=== PATIENT | male | born 1995 | race Two or more races ===

== ENCOUNTER 2024-01-21 11:28 | Inpatient (IN) | payer MEDICAID, OTHER ==
[~2024-01-21] VITALS: Ht 188 cm; Wt 160.8 kg
--- NOTE | 2024-01-21 11:35 | ED.PDOC ---
GI ASSESSMENT HPI Comments H HPI: Poor Historian. 28-year-old male presents to emergency department for evaluation of right lower quadrant pain with associated nausea vomiting diarrhea nonbilious nonbloody. Onset of symptoms was this morning. Pain is constant nonradiating. No alleviating or precipitating factors. Never had this kind of pain before. Vitals T: 98.0 F RR: 24 HR: 80 BP: 148/97 O2: 99% on RA PMHx: denies PSHx: L arm surgery Social hx: endorses tobacco use, denies ETOH use, denies drug use Meds: denies Allergies: amoxicillin REVIEW OF SYSTEMS: CONSTITUTIONAL: Denies acute: fever, diaphoresis, chills, HEAD: Denies acute: headache, photophobia Eyes: Denies acute: Double vision, vision loss, eye pain, eye discharge. EARS: Denies acute: tinnitus, hearing loss, ear discharge, ear pain, THROAT: Denies acute: sore throat, swelling, difficulty swallowing , pain with swallowing, change in voice. NECK: Denies acute: neck pain, neck swelling, stiff neck. HEART: Denies acute : chest pain, palpitations, LUNGS: Denies acute: SOB, wheezing, cough, hemoptysis ABDOMEN: Denies acute: melena , hematemesis, hematochezia SKIN: Denies acute: rash, redness, lesions, itchiness. EXTREMITIES: Denies acute: calf pain, numbness, tingling, weakness, denies pain in extremity. Denies acute: Low back pain. Neuro: Denies acute: focal neurological deficit, motor or sensory focal neurological deficit, tremors, seizure like activity, confusion, dizziness, change in mental status, loss of bowel or bladder function, cauda equina like symptoms. : Denies acute: dysuria, hematuria, flank pain, increase in urinary frequency. PSYCH: Denies acute: hallucination, suicidal ideation, homicidal ideation. PHYSICAL EXAM: General: Moderate acute distress, awake and alert. Head: normocephalic, atraumatic. Neck: supple, trachea is midline, no swelling. Throat: Normal phonation. Eyes:, no erythema, no purulent discharge, no proptosis, no icterus. Heart: regular rate, regular rhythm, no significant murmur appreciated. Lungs: no apparent respiratory distress, Able to speak in full sentences. No wheezing, no rhonchi, no crackles. No stridors Clear to auscultation bilaterally. Abdomen: Right lower quadrant tender to palpation, non distended, soft, no guarding, no rebound, + bowel sounds. Obese Neuro: Awake, Alert, oriented to name, self, situation, follows commands GCS=15. Speech is normal. Skin: no petechia, no purpura, no cyanosis, non-pale, not jaundice. Lower extremities: --no - Pitting edema no deformity, no focal swelling, no calf TTP. Makes eye contact. moves all four extremities. Face: no apparent facial droop. Ambulating in the ED independently. Chief Complaint: abdominal pain Time Seen by MD: 12:14 Reviewed Notes: Nurses Notes, Allergies Allergies: Coded Allergies: Amoxicillin (Verified Allergy, Unknown, 01/21/24) Information Source: Patient Mode of Arrival: Ambulatory Brought in by: self Past Medical History PAST MEDICAL HISTORY: Denies Surgical History (Other): L arm Family History Family History: Reviewed,noncontributory to illness Social History Smoker: Cigarettes Alcohol: Denies ETOH Use Drugs: Denies Drug Use Lives In: Home Was a procedure done? Was a procedure done?: No GI differential Dx Differential Diagnosis: Other (DDX include but not limited to diverticulitis, colitis, gastroenteritis, acute abdomen, SBO, enteritis, constipation, volvulus, appendicitis, Gallbladder disease, choledocolithiasis, ascending cholangitis, pancreatitis, intraAbdominal mass/neoplasm, hepatitis, UTI, pylonephritis, kidney stone, aneurysm, dissection, Inflammatory bowel disease, gastroparesis, ischemic bowel.) X-Ray, Labs, Meds, VS Vital Signs Date Time Temp Pulse Resp B/P (MAP) Pulse Ox O2 Delivery O2 Flow Rate FiO2 01/21/24 14:30 68 17 151/99 (116) 98 01/21/24 12:41 63 15 154/94 (114) 98 01/21/24 12:33 155/89 01/21/24 12:05 73 16 01/21/24 12:05 73 16 141/98 (112) 100 01/21/24 11:30 98.0 80 24 148/97 (114) 99 Lab Test 01/21/24 13:52 01/21/24 11:44 Range/Units Lactic Acid Level 1.6 2.9 *H 0.4-2.0 mmol/L White Blood Count 7.3 4.4-10.8 10^3/uL Red Blood Count 5.28 4.5-5.90 10^6/uL Hemoglobin 15.8 13.5-17.5 g/dL Hematocrit 45.4 41.0-53.0 % Mean Corpuscular Volume 85.9 80.0-100.0 fL Mean Corpuscular Hemoglobin 29.9 28.0-32.0 pg Mean Corpuscular Hemoglobin Concent 34.8 32.0-36.0 g/dL Red Cell Distribution Width 13.4 11.8-14.3 % Platelet Count 287 140-450 10^3/uL Mean Platelet Volume 8.1 6.9-10.8 fL Neutrophils (%) (Auto) 54.1 37.0-80.0 % Lymphocytes (%) (Auto) 35.0 10.0-50.0 % Monocytes (%) (Auto) 7.1 0.0-12.0 % Eosinophils (%) (Auto) 2.8 0.0-7.0 % Basophils (%) (Auto) 1.0 0.0-2.0 % Neutrophils # (Auto) 4.0 1.6-8.6 10 ^3/uL Lymphocytes # (Auto) 2.6 0.4-5.4 10 ^3/uL Monocytes # (Auto) 0.5 0-1.3 10 ^3/uL Eosinophils # (Auto) 0.2 0-0.8 10 ^3/uL Basophils # (Auto) 0.1 0-0.2 10 ^3/uL Nucleated Red Blood Cells 0.1 % Sodium Level 141 136-145 mmol/L Potassium Level 3.8 3.5-5.1 mmol/L Chloride Level 105 98-107 mmol/L Carbon Dioxide Level 29 20-31 mmol/L Anion Gap 7 5-15 Blood Urea Nitrogen 11 9-23 mg/dL Creatinine 1.14 0.700-1.30 mg/dL Glomerular Filtration Rate Calc 89 >90 mL/min BUN/Creatinine Ratio 9.6 L 10.0-20.0 Serum Glucose 108 H 74-106 mg/dL Calcium Level 9.6 8.7-10.4 mg/dL Total Bilirubin 0.5 0.2-1.0 mg/dL Aspartate Amino Transferase (AST) 30 13-40 U/L Alanine Aminotransferase (ALT) 75 H 7-40 U/L Alkaline Phosphatase 110 46-116 U/L Total Protein 7.4 5.7-8.2 g/dL Albumin 4.9 H 3.2-4.8 g/dL Lipase 29 12-53 U/L Current Medications Medications (Trade) Dose Ordered Sig/George Route Start Time Stop Time Status Last Admin Sodium Chloride 1,000 ml @ 1,000 mls/hr Q1H ONCE IV 01/21/24 11:45 01/21/24 12:44 DC 01/21/24 12:19 Ondansetron HCl (Zofran) 8 mg ONCE ONCE IV 01/21/24 11:45 01/21/24 11:46 DC 01/21/24 12:19 Fentanyl Citrate 100 mcg ONCE ONCE IV 01/21/24 12:30 01/21/24 12:31 DC 01/21/24 12:33 Tamsulosin HCl (Flomax) 0.4 mg ONCE ONCE PO 01/21/24 12:30 01/21/24 12:31 DC 01/21/24 12:37 [place] [id number] Ph: [phone] DIAGNOSTIC IMAGING Diagnostic Imaging Report : [id number] Signed PATIENT: JESI BROOKS ACCT: [id number] UNIT: [id number] : 1995 LOC: ER ROOM / BED: / AGE / SEX: 28 / M ADM STATUS: REG ER SERVICE 1138 ORDERING PHYSICIAN: JOSÉ RASMUSSEN DO PROCEDURE(s): ABPL - CT AB PEL WO CON-NO ORAL OR IV REASON: RLQ PAIN N/V/D ORDER NUMBER(s): [id number], ACCESSION NUMBER(s): [id number] Exam: CT CT AB PEL WO CON-NO ORAL OR IV History: RLQ PAIN N/V/D Comparison Study: None Technique: Multidetector spiral CT of the abdomen and pelvis was performed from lung bases to pubic symphysis. Imaging was performed without IV contrast. Axial, coronal and sagittal multiplanar reformats were obtained from the axial data set by the technologist. Radiation dose : Abdomen/Pelvis: CTDIvol 25 mGy, DLP 1655 mGy*cm. Findings: Evaluation of solid organs is limited due to lack of intravenous contrast use. Lung Bases: No acute or significant lung base finding. Normal heart size. No pleural or pericardial effusion. Liver: The liver is normal in size. No focal lesions. Gallbladder and biliary Tree: Unremarkable Spleen: Unremarkable Pancreas: The pancreas is grossly normal in appearance. Adrenal Glands: Unremarkable Kidneys: There is mild right hydronephrosis. There is a punctate distal right ureteral calculus measuring less than 2 mm. No left hydronephrosis. Bladder: Grossly unremarkable for degree of distention. Bowel: The stomach is grossly normal in appearance. Small bowel and colon are normal in caliber and distribution. Normal appendix is visualized in the right lower quadrant without findings of appendicitis. Ascites: Absent Lymphadenopathy: No mesenteric, retroperitoneal or periportal lymphadenopathy. Abdominal wall and Mesentery: Unremarkable. Vasculature: The visualized abdominal aorta is normal in size and caliber. Evaluation of abdominal and pelvic vessels is limited due to lack of intravenous contrast. Pelvic Organs: Unremarkable Musculoskeletal: No aggressive focal bony lesions, acute fractures or dislocation. IMPRESSION: 1. Punctate mildly obstructing distal right ureteral calculus measuring less than 2 mm associated with mild right hydronephrosis. Urology evaluation is recommended. Radiation optimization: All CT scans at this facility use at least one of these dose optimization techniques: Automated exposure control mA and/or kV adjustment per patient size (includes targeted exams where dose is matched to clinical indication) or iterative reconstruction. HS:Y ATED BY: ASHWIN COOK MD DICTATED DATE/TIME: 01/21/248 SIGNED BY: ASHWIN COOK MD SIGNED DATE/TIME: 01/21/24 1218 CC: Time of 1ST Reevaluation: 19:08 Reevaluation 1ST: Improved Patient Education/Counseling: Diagnosis, Treatment Family Education/Counseling: No Family Present Comments Patient presented with the above HPI.-abdominal pain-----workup was initiated. patient was found with the above mentioned diagnosis. Patient was given: Fentanyl, fluids, Zofran, Flomax, Rocephin Patient ED course and VS have been stabilized. Patient has been reassessed in the ED and remained in a stable condition. Pertinent incidental findings were discussed with the patient and/or family. Patient/family voices understanding and is agreeable with plan. Patient has been observed in the ED adequate length of time to insure improvement/stability. patient was admitted to the medicine team for further evaluation and treatment of their presentation. All the reports of any imaging studies that were ordered by myself were reviewed by myself. Departure 1 Departure Time of Disposition: 14:25 Impression: Primary Impression: Hydronephrosis with renal and ureteral calculous obstruction Disposition: ADMITTED INPATIENT Admit to: Tele Condition: Guarded Discharged With: Self Critical Care Note Critical Care Time?: No I personally scribed for JOSÉ RASMUSSEN DO ([email or web address]) on 01/21/24 at 11:35. Electronically submitted by Nelida Flores ([facility]). I personally scribed for JOSÉ RASMUSSEN DO ([email or web address]) on 01/21/24 at 12:16. Electronically submitted by Nelida Flores ([email or web address]). I personally scribed for JOSÉ RASMUSSEN DO ([email or web address]) on 01/21/24 at 12:40. Electronically submitted by Nelida Flores ([employer]). JOSÉ RASMUSSEN DO Jan 21, 2024 11:35
[2024-01-21 12:10] LABS: Basophils # (auto) 0.1 10 ^3/uL (0-0.2); Eosinophils # (auto) 0.2 10 ^3/uL (0-0.8); Eosinophils % (auto) 2.8 % (0.0-7.0); Hematocrit 45.4 % (41.0-53.0); Hemoglobin 15.8 g/dL (13.5-17.5); Lymphocytes # (auto) 2.6 10 ^3/uL (0.4-5.4); Mean Corpuscular Hemoglobin 29.9 pg (28.0-32.0); Mean Corpuscular Hgb Conc. 34.8 g/dL (32.0-36.0); Mean Corpuscular Volume 85.9 fL (80.0-100.0); Monocytes # (auto) 0.5 10 ^3/uL (0-1.3); Monocytes % (auto) 7.1 % (0.0-12.0); Neutrophils % (auto) 54.1 % (37.0-80.0); Nucleated Red Blood Cells % 0.1 %; Platelet Count (auto) 287 10^3/uL (140-450); Red Blood Cells 5.28 10^6/uL (4.5-5.90); Red Cell Distribution Width 13.4 % (11.8-14.3); White Blood Cell 7.3 10^3/uL (4.4-10.8)
[2024-01-21] MEDS: SODIUM CHLORIDE 0.9% 1,000 ML IV ONE (12:16)
[2024-01-21] MEDS: ONDANSETRON HCL 4 MG/2 ML VIAL IV ONE (12:19)
--- NOTE | 2024-01-21 12:21 | DVH ---
Exam: CT CT AB PEL WO CON-NO ORAL OR IV History: RLQ PAIN N/V/D Comparison Study: None Technique: Multidetector spiral CT of the abdomen and pelvis was performed from lung bases to pubic symphysis. Imaging was performed without IV contrast. Axial, coronal and sagittal multiplanar reform ats were obtained from the axial data set by the technologist. Radiation dose : Abdomen/Pelvis: CTDIvol 25 mGy, DLP 1655 mGy*cm. Findings: Evaluation of solid organs is limited due to lack of intravenous contrast use. Lung Bases: No acute or significant lung base finding. Normal heart size. No pleural or pericardial effusion. Liver: The liver is normal in size. No focal lesions. Gallbladder and biliary Tree: Unremarkable Spleen: Unremarkable Pancreas: The pancreas is grossly normal in appearance. Adrenal Glands: Unremarkable Kidneys: There is mild right hydronephrosis. There is a punctate distal right ureteral calculus measu ring less than 2 mm. No left hydronephrosis. Bladder: Grossly unremarkable for degree of distention. Bowel: The stomach is grossly normal in appearance. Small bowel and colon are normal in caliber and d istribution. Normal appendix is visualized in the right lower quadrant without findings of appendici tis. Ascites: Absent Lymphadenopathy: No mesenteric, retroperitoneal or periportal lymphadenopathy. Abdominal wall and Mesentery: Unremarkable. Vasculature: The visualized abdominal aorta is normal in size and caliber. Evaluation of abdominal a nd pelvic vessels is limited due to lack of intravenous contrast. Pelvic Organs: Unremarkable Musculoskeletal: No aggressive focal bony lesions, acute fractures or dislocation. IMPRESSION: 1. Punctate mildly obstructing distal right ureteral calculus measuring less than 2 mm associated wit h mild right hydronephrosis. Urology evaluation is recommended. Radiation optimization: All CT scans at this facility use at least one of these dose optimization isabell hniques: Automated exposure control mA and/or kV adjustment per patient size (includes targeted exams where dose is matched to clinical indication) or iterative reconstruction. HS:Y
[2024-01-21] MEDS: fentaNYL CITRATE 100 MCG/2 ML VL IV ONE (12:33)
[2024-01-21] MEDS: TAMSULOSIN HYDROCHLORIDE 0.4 MG CAP PO ONE (12:37)
[2024-01-21 12:49] LABS: Lactic Acid w/Reflex 2.9 mmol/L (0.4-2.0)
[2024-01-21 13:16] LABS: Alanine Aminotransferase 75 U/L (7-40); Alkaline Phosphatase 110 U/L (46-116); Anion Gap 7 (5-15); Aspartate Aminotransferase 30 U/L (13-40); BUN/Creatinine Ratio 9.6 (10.0-20.0); Blood Urea Nitrogen 11 mg/dL (9-23); Calcium 9.6 mg/dL (8.7-10.4); Carbon Dioxide 29 mmol/L (20-31); Chloride 105 mmol/L (98-107); Glucose 108 mg/dL (74-106); Lipase 29 U/L (12-53); Potassium 3.8 mmol/L (3.5-5.1); Sodium 141 mmol/L (136-145)
[2024-01-21 13:17] LABS: Albumin 4.9 g/dL (3.2-4.8); Bilirubin, Total 0.5 mg/dL (0.2-1.0); Total Protein 7.4 g/dL (5.7-8.2)
[2024-01-21] MEDS ORDERED: TEMAZEPAM 15 MG CAP PO PRN (15:15)
[2024-01-21] MEDS ORDERED: LORazepam 0.5 MG TAB PO PRN (15:15)
[2024-01-21] MEDS: SODIUM CHLORIDE 0.9% 1,000 ML IV SCH (15:15)
[2024-01-21] MEDS ORDERED: MAALOX PLUS or MAALOX 30 ML PO PRN (15:15)
[2024-01-21] MEDS ORDERED: DOCUSATE SOD 100 MG CAP PO PRN (15:15)
--- NOTE | 2024-01-21 15:31 | DVHHP2 ---
History of Present Illness Reason for Visit: Abdominal pain History of Present Illness 28-year-old morbidly obese patient with no stated other medical history comes to the ED with complaints of abdominal pain patient on full evaluation was shown to have signs of acute hydronephrosis with signs of partial obstruction due to ston es at this point in time patient was recommended for admission and continued evaluation and treatment inpatient for acute hydronephrosis suspected urinary tract based infection Review of Systems Constitutional: Yes: Weakness; No: Fever, Chills, Sweats, Malaise, Other Eyes: No: Pain, Vision change, Conjunctivae inflammation, Eyelid inflammation, Other, Redness ENT: No: Ear pain, Ear discharge, Nose pain, Nose discharge, Nose congestion, Mouth pain, Mouth swelling, Throat pain, Throat swelling, Other Respiratory: No: Cough, Dry, Shortness of breath, SOB with excertion, Wheezing, Hemoptysis, Pleuritic Pain, Sputum, Wheezing, Other Cardiovascular: No: Chest Pain, Palpitations, Orthopnea, Paroxysmal Noc. Dyspnea, Edema, Lt Headedness, Other Gastrointestinal: No: Nausea, Vomiting, Abdominal Pain, Diarrhea, Constipation, Melena, Hematochezia, Other Genitourinary: Dysuria, Frequency; No Incontinence, No Hematuria; Retention; No Other Musculoskeletal: No: other, neck pain, shoulder pain, arm pain, back pain, hand pain, leg pain, foot pain Skin: No: Rash, Lesions, Jaundice, Bruising, Other Neurological: No: Weakness, Numbness, Incoordination, Change in speech, Confusion, Seizures, Other Allergies: Coded Allergies: Amoxicillin (Verified Allergy, Unknown, 01/21/24) Medications Current Medications Medications Dose Ordered Sig/George Route Start Time Stop Time Status Last Admin Dose Admin Finasteride 5 mg DAILY PO 01/21/24 15:15 UNV Tamsulosin HCl 0.8 mg DAILY PO 01/22/24 10:00 UNV Sodium Chloride 1,000 ml @ 100 mls/hr Q10H IV 01/21/24 15:15 UNV Lorazepam 0.5 mg Q6HP PRN PO 01/21/24 15:15 UNV Al Hydrox/Mg Hydrox/Simethicone 30 ml Q6HP PRN PO 01/21/24 15:15 UNV Docusate Sodium 100 mg BIDPRN PRN PO 01/21/24 15:15 UNV Acetaminophen 650 mg Q6HP PRN PO 01/21/24 15:15 UNV Temazepam 15 mg QHSP PRN PO 01/21/24 15:15 UNV Acetaminophen/ Hydrocodone Bitart 1 tab Q4HP PRN PO 01/21/24 15:15 UNV Ondansetron HCl 4 mg Q4HP PRN IV 01/21/24 15:15 UNV Morphine Sulfate 2 mg Q4HPRN PRN IV 01/21/24 15:15 UNV Ceftriaxone Sodium 50 ml @ 100 mls/hr DAILY IV 01/22/24 10:00 UNV Exam Vital Signs Vital Signs Date Time Temp Pulse Resp B/P (MAP) Pulse Ox O2 Delivery O2 Flow Rate FiO2 01/21/24 14:30 68 17 151/99 (116) 98 01/21/24 11:30 98.0 General Appearance: Alert, Oriented X3, Cooperative HEENT: Atraumatic, EOMI Respiratory: Clear to auscultation, Normal air movement Cardiovascular: Regular rate, Normal S1, Normal S2 Abdominal: Normal bowel sounds (Flank pain), Soft, No tenderness Extremities: No clubbing, No cyanosis, No edema Skin: No rashes, No breakdown, No significant lesion Neuro: Normal gait, Normal speech Psych/Mental Status: Mood NL Labs/Xrays Labs Test 01/21/24 13:52 01/21/24 11:44 Range/Units Lactic Acid Level 1.6 0.4-2.0 mmol/L White Blood Count 7.3 4.4-10.8 10^3/uL Red Blood Count 5.28 4.5-5.90 10^6/uL Hemoglobin 15.8 13.5-17.5 g/dL Hematocrit 45.4 41.0-53.0 % Mean Corpuscular Volume 85.9 80.0-100.0 fL Mean Corpuscular Hemoglobin 29.9 28.0-32.0 pg Mean Corpuscular Hemoglobin Concent 34.8 32.0-36.0 g/dL Red Cell Distribution Width 13.4 11.8-14.3 % Platelet Count 287 140-450 10^3/uL Mean Platelet Volume 8.1 6.9-10.8 fL Neutrophils (%) (Auto) 54.1 37.0-80.0 % Lymphocytes (%) (Auto) 35.0 10.0-50.0 % Monocytes (%) (Auto) 7.1 0.0-12.0 % Eosinophils (%) (Auto) 2.8 0.0-7.0 % Basophils (%) (Auto) 1.0 0.0-2.0 % Neutrophils # (Auto) 4.0 1.6-8.6 10 ^3/uL Lymphocytes # (Auto) 2.6 0.4-5.4 10 ^3/uL Monocytes # (Auto) 0.5 0-1.3 10 ^3/uL Eosinophils # (Auto) 0.2 0-0.8 10 ^3/uL Basophils # (Auto) 0.1 0-0.2 10 ^3/uL Nucleated Red Blood Cells 0.1 % Sodium Level 141 136-145 mmol/L Potassium Level 3.8 3.5-5.1 mmol/L Chloride Level 105 98-107 mmol/L Carbon Dioxide Level 29 20-31 mmol/L Anion Gap 7 5-15 Blood Urea Nitrogen 11 9-23 mg/dL Creatinine 1.14 0.700-1.30 mg/dL Glomerular Filtration Rate Calc 89 >90 mL/min BUN/Creatinine Ratio 9.6 L 10.0-20.0 Serum Glucose 108 H 74-106 mg/dL Calcium Level 9.6 8.7-10.4 mg/dL Total Bilirubin 0.5 0.2-1.0 mg/dL Aspartate Amino Transferase (AST) 30 13-40 U/L Alanine Aminotransferase (ALT) 75 H 7-40 U/L Alkaline Phosphatase 110 46-116 U/L Total Protein 7.4 5.7-8.2 g/dL Albumin 4.9 H 3.2-4.8 g/dL Lipase 29 12-53 U/L Assessment/Plan Assessment/Plan Admit to [facility] Hydronephrosis with suspected UTI CT scan shows 2 mm stone with partial obstruction recommended urology evaluation Urology consulted IV hydration IV antibiotics Tamsulosin daily Finasteride daily Recommendation for Ashford placement for decompression P.r.n. medication for the management of acute pain Patient is morbidly obese may need assistance with managing ambulation No other stated past medical history at this point in time we will continue to monitor baseline some toileting Hypertension and blood pressure management Changes in acute glucose due to patient's size Plan discussed with: Patient My Orders Orders - DANILO MART MD Procedure Category Date Status Time * Gu Consult CONS 01/21/24 Transmitted 15:05 Insert Ashford Catheter [facility]AN[facility] 01/21/24 In Process 15:05 Finasteride Tablet PHA 01/21/24 Logged (Proscar Tablet) 15:15 Tamsulosin PHA 01/22/24 Logged Hydrochloride (Flomax) 10:00 Admit ADMIT 01/21/24 Transmitted 15:05 Code Status CODE 01/21/24 Transmitted 15:05 Vital Signs BANNER 01/21/24 In Process 15:05 Review Orders With [facility]ANNER 01/21/24 In Process Adm. 15:05 Regular Diet DIET 01/21/24 Transmitted Dinner Sodium Chloride 0.9% PHA 01/21/24 Logged 15:15 Lorazepam Tablet PHA 01/21/24 Logged (Ativan Tablet) 15:15 Alum & Mag PHA 01/21/24 Logged Hydrox-Simethicone 15:15 Docusate Sodium PHA 01/21/24 Logged Capsule (Colace 15:15 Acetaminophen Tablet PHA 01/21/24 Logged (Tylenol Tablet) 15:15 Temazepam (Restoril) PHA 01/21/24 Logged 15:15 Notify Of Changes BANNER 01/21/24 In Process From Base 15:05 Advance Directive [facility]ANNER 01/21/24 In Process 15:05 Basic Metabolic Panel LAB 01/22/24 Verified 04:00 Complete Blood Count LAB 01/22/24 Verified 04:00 Patient Condition ORDERS 01/21/24 Transmitted 15:05 Allergies [facility]ANNER 01/21/24 In Process 15:05 Hydrocodone-Acet PHA 01/21/24 Logged 5/325mg Tab ([place] 15:15 Ondansetron Hcl PHA 01/21/24 Logged (Zofran) 15:15 Morphine Sulfate PHA 01/21/24 Logged Injection 15:15 Notify Of Changes BANNER 01/21/24 In Process From Base 15:05 Family Preservation Caseworker For BANNER 01/21/24 In Process 24 Hours 15:05 Oxygen By Nasal RT 01/21/24 Transmitted Cannula 15:05 Ceftriaxone 1gm/50ml PHA 01/22/24 Logged D5w (Rocephin) 10:00 Problem List: (1) Morbid obesity with BMI of 45.0-49.9, adult (2) Hydronephrosis with renal and ureteral calculous obstruction Date of Service: Jan 21, 2024 Billing Provider: DANILO MART MD Common Visit Codes: [id number] INP/OBS CARE (HIGH) DANILO MART MD Jan 21, 2024 15:31
[2024-01-21 17:38] VITALS: BP 154/102; PULSE 66; RESP 20; TEMP 98.3; O2SAT 98
[2024-01-21] MEDS: MORPHINE SULFATE INJ 2 MG/ml SYRG IV PRN (17:56)
[2024-01-21] MEDS: HYDROcodone-ACET 5/325MG TAB PO PRN (19:08)
[2024-01-21 19:36] LABS: Urine Amorphous Crystal MOD /hpf (None Seen); Urine Bacteria FEW /hpf (None Seen); Urine Blood 1+ /uL (Negative); Urine Clarity Ex.Turbid (Clear); Urine Color Brown (Yellow); Urine Protein, UAD Negative (Negative); Urine Specific Gravity 1.024 (1.001-1.035); Urine Urobilinogen Normal (Negative); Urine WBC 8 /hpf (0 - 3)
[2024-01-22] VITALS (8 sets, daily range): BP systolic 105–142; BP diastolic 59–88; PULSE 78–98; RESP 18–20; TEMP 97.9–99.3; O2SAT 93–98
[2024-01-22 04:10] LABS: Basophils # (auto) 0 10 ^3/uL (0-0.2); Basophils % (auto) 0.4 % (0.0-2.0); Eosinophils # (auto) 0 10 ^3/uL (0-0.8); Eosinophils % (auto) 0.2 % (0.0-7.0); Hematocrit 41.6 % (41.0-53.0); Hemoglobin 14.6 g/dL (13.5-17.5); Lymphocytes % (auto) 18.3 % (10.0-50.0); Mean Corpuscular Hemoglobin 30.1 pg (28.0-32.0); Mean Corpuscular Hgb Conc. 35.1 g/dL (32.0-36.0); Mean Corpuscular Volume 85.8 fL (80.0-100.0); Monocytes # (auto) 0.8 10 ^3/uL (0-1.3); Monocytes % (auto) 7.6 % (0.0-12.0); Neutrophils # (auto) 8.2 10 ^3/uL (1.6-8.6); Neutrophils % (auto) 73.5 % (37.0-80.0); Nucleated Red Blood Cells % 0.2 %; Platelet Count (auto) 229 10^3/uL (140-450); Red Blood Cells 4.85 10^6/uL (4.5-5.90); Red Cell Distribution Width 13.4 % (11.8-14.3); White Blood Cell 11.1 10^3/uL (4.4-10.8)
[2024-01-22 04:12] LABS: Chloride 104 mmol/L (98-107); Sodium 139 mmol/L (136-145)
[2024-01-22 04:13] LABS: Anion Gap 9 (5-15); Carbon Dioxide 26 mmol/L (20-31)
[2024-01-22 04:14] LABS: Calcium 9.6 mg/dL (8.7-10.4)
[2024-01-22 04:18] LABS: BUN/Creatinine Ratio 7.5 (10.0-20.0); Blood Urea Nitrogen 12 mg/dL (9-23); Glucose 94 mg/dL (74-106)
[2024-01-22] MEDS: FINASTERIDE 5 MG TAB PO SCH (07:45)
[2024-01-22] MEDS: cefTRIAXone 1GM/50ML D5W 50 ML IV ONE (07:50)
[2024-01-22] MEDS: ONDANSETRON HCL 4 MG/2 ML VIAL IV PRN (08:38)
[2024-01-22] MEDS: TAMSULOSIN HYDROCHLORIDE 0.4 MG CAP PO SCH (09:54)
--- NOTE | 2024-01-22 11:02 | DVH ---
INDICATION: hydronephrosis TECHNIQUE: Multiple real-time sonographic images of the kidneys and bladder were obtained. COMPARISON: CT abdomen pelvis 01/21/2024 FINDINGS: The right kidney measures 11.8 cm in length, which is normal in size. There is normal echogenicity of the right kidney. Trace right hydronephrosis. The left kidney measures 12.1 cm in length, which is normal in size. There is normal echogenicity of the left kidney. No hydronephrosis. Hypoechoic structure seen in the region of the left renal medulla , possibly cyst versus prominent column of Ronnie, not clearly seen on comparison CT. No large intraluminal masses are seen in the bladder. Ashford catheter in place. IMPRESSION: 1. Trace right hydronephrosis. HS:Y
[2024-01-22] MEDS: cefTRIAXone 1GM/50ML D5W 50 ML IV SCH (11:12)
--- NOTE | 2024-01-22 14:22 | DVHINCON2 ---
Date of service: Jan 22, 2024 History of Present Illness History Source: RN Notes, Notes HPI 28 yo obese male with findings of 2 mm distal stone on the right with renal colic and dysuria. Home Meds No Active Prescriptions or Reported Meds Past Medical History Patient Family History: Patient reports no known family medical history. Review of Systems Genitourinary: Dysuria, Pain H&P Exam Vital Signs Vital Signs Date Time Temp Pulse Resp B/P (MAP) Pulse Ox O2 Delivery O2 Flow Rate FiO2 01/22/24 13:18 98.1 95 20 142/78 (99) 93 98.1 Labs/Xrays [place] [address] Ph: [phone] DIAGNOSTIC IMAGING Diagnostic Imaging Report : [id number] Signed PATIENT: JESI BROOKS ACCT: [id number] UNIT: [id number] : 1995 LOC: ER ROOM / BED: / AGE / SEX: 28 / M ADM STATUS: REG ER SERVICE 1138 ORDERING PHYSICIAN: JOSÉ RASMUSSEN DO PROCEDURE(s): ABPL - CT AB PEL WO CON-NO ORAL OR IV REASON: RLQ PAIN N/V/D ORDER NUMBER(s): [id number], ACCESSION NUMBER(s): [id number] Exam: CT CT AB PEL WO CON-NO ORAL OR IV History: RLQ PAIN N/V/D Comparison Study: None Technique: Multidetector spiral CT of the abdomen and pelvis was performed from lung bases to pubic symphysis. Imaging was performed without IV contrast. Axial, coronal and sagittal multiplanar reformats were obtained from the axial data set by the technologist. Radiation dose : Abdomen/Pelvis: CTDIvol 25 mGy, DLP 1655 mGy*cm. Findings: Evaluation of solid organs is limited due to lack of intravenous contrast use. Lung Bases: No acute or significant lung base finding. Normal heart size. No pleural or pericardial effusion. Liver: The liver is normal in size. No focal lesions. Gallbladder and biliary Tree: Unremarkable Spleen: Unremarkable Pancreas: The pancreas is grossly normal in appearance. Adrenal Glands: Unremarkable Kidneys: There is mild right hydronephrosis. There is a punctate distal right ureteral calculus measuring less than 2 mm. No left hydronephrosis. Bladder: Grossly unremarkable for degree of distention. Bowel: The stomach is grossly normal in appearance. Small bowel and colon are normal in caliber and distribution. Normal appendix is visualized in the right lower quadrant without findings of appendicitis. Ascites: Absent Lymphadenopathy: No mesenteric, retroperitoneal or periportal lymphadenopathy. Abdominal wall and Mesentery: Unremarkable. Vasculature: The visualized abdominal aorta is normal in size and caliber. Evaluation of abdominal and pelvic vessels is limited due to lack of intravenous contrast. Pelvic Organs: Unremarkable Musculoskeletal: No aggressive focal bony lesions, acute fractures or dislocation. IMPRESSION: 1. Punctate mildly obstructing distal right ureteral calculus measuring less than 2 mm associated with mild right hydronephrosis. Urology evaluation is recommended. Radiation optimization: All CT scans at this facility use at least one of these dose optimization techniques: Automated exposure control mA and/or kV adjustment per patient size (includes targeted exams where dose is matched to clinical indication) or iterative reconstruction. HS:Y ATED BY: ASHWIN COOK MD DICTATED DATE/TIME: 01/21/241217 SIGNED BY: ASHWIN COOK MD SIGNED DATE/TIME: 01/21/241217 CC: Labs Test 01/22/24 03:15 01/21/24 18:16 01/21/24 13:52 01/21/24 11:44 Range/Units White Blood Count 11.1 #H 4.4-10.8 10^3/uL Red Blood Count 4.85 4.5-5.90 10^6/uL Hemoglobin 14.6 13.5-17.5 g/dL Hematocrit 41.6 41.0-53.0 % Mean Corpuscular Volume 85.8 80.0-100.0 fL Mean Corpuscular Hemoglobin 30.1 28.0-32.0 pg Mean Corpuscular Hemoglobin Concent 35.1 32.0-36.0 g/dL Red Cell Distribution Width 13.4 11.8-14.3 % Platelet Count 229 140-450 10^3/uL Mean Platelet Volume 7.8 6.9-10.8 fL Neutrophils (%) (Auto) 73.5 37.0-80.0 % Lymphocytes (%) (Auto) 18.3 10.0-50.0 % Monocytes (%) (Auto) 7.6 0.0-12.0 % Eosinophils (%) (Auto) 0.2 0.0-7.0 % Basophils (%) (Auto) 0.4 0.0-2.0 % Neutrophils # (Auto) 8.2 1.6-8.6 10 ^3/uL Lymphocytes # (Auto) 2.0 0.4-5.4 10 ^3/uL Monocytes # (Auto) 0.8 0-1.3 10 ^3/uL Eosinophils # (Auto) 0 0-0.8 10 ^3/uL Basophils # (Auto) 0 0-0.2 10 ^3/uL Nucleated Red Blood Cells 0.2 % Sodium Level 139 136-145 mmol/L Potassium Level 4.0 3.5-5.1 mmol/L Chloride Level 104 98-107 mmol/L Carbon Dioxide Level 26 20-31 mmol/L Anion Gap 9 5-15 Blood Urea Nitrogen 12 9-23 mg/dL Creatinine 1.60 H 0.700-1.30 mg/dL Glomerular Filtration Rate Calc 59 >90 mL/min BUN/Creatinine Ratio 7.5 L 10.0-20.0 Serum Glucose 94 74-106 mg/dL Uric Acid 8.8 3.7-9.2 mg/dL Calcium Level 9.6 8.7-10.4 mg/dL Urine Color Brown H Yellow Urine Clarity Ex.turbid Clear Urine pH 5.0 5.0-9.0 Urine Specific [place] 1.024 1.001-1.035 Urine Protein Negative Negative Urine Ketones Negative Negative Urine Blood 1+ H Negative /uL Urine Nitrite Negative Negative Urine Bilirubin Negative Negative Urine Urobilinogen Normal Negative mg/dL Urine Leukocyte Esterase Negative Negative /uL Urine RBC 3 0 - 3 /hpf Urine WBC 8 0 - 3 /hpf Urine Squamous Epithelial Cells Few <5 /hpf Urine Amorphous Crystals Mod None Seen /hpf Urine Bacteria Few H None Seen /hpf Urine Glucose Normal Normal mg/dL Lactic Acid Level 1.6 0.4-2.0 mmol/L Total Bilirubin 0.5 0.2-1.0 mg/dL Aspartate Amino Transferase (AST) 30 13-40 U/L Alanine Aminotransferase (ALT) 75 H 7-40 U/L Alkaline Phosphatase 110 46-116 U/L Total Protein 7.4 5.7-8.2 g/dL Albumin 4.9 H 3.2-4.8 g/dL Lipase 29 12-53 U/L Assessment/Plan Problem List: (1) Hydronephrosis with renal and ureteral calculous obstruction (2) Morbid obesity with BMI of 45.0-49.9, adult Plan aggressive hydration flomax strain urine pain meds prn f/u outpt Plan discussed with: Other GIOVANNI SANDOVAL NP Jan 22, 2024 14:22
[2024-01-22] MEDS: SODIUM CHLORIDE 0.9% 1,000 ML IV ONE (14:30)
--- NOTE | 2024-01-22 18:23 | DVHPNRES ---
Progress Note Date Seen: Jan 22, 2024 Resident Creating Document: XANDER ANDERSON RESIDENT Has the PT tested + for MRSA If YES, has PT been informed?: No Medical Necessity Reason Pt with a Central, PICC or Fol: No Subjective Review of Systems 28-year-old male PMHX obesity presents to emergency department for evaluation of right lower quadrant pain with associated nausea Onset of symptoms 2 days ago Pain is constant nonradiating. No alleviating or precipitating factors. Never had this kind of pain before. Pt also states urinary retention for 1 day Objective vital signs Vital Sign Date Time Temp Pulse Resp B/P (MAP) Pulse Ox O2 Delivery O2 Flow Rate FiO2 01/22/24 17:07 98.5 78 18 117/63 (81) 98 98.5 01/22/24 08:50 Room Air* 0 21 medications Current Medications Medications Dose Ordered Sig/George Route Start Time Stop Time Status Last Admin Dose Admin Tamsulosin HCl 0.8 mg DAILY PO 01/22/24 10:00 01/22/24 09:54 0.8 MG Sodium Chloride 1,000 ml @ 100 mls/hr Q10H IV 01/21/24 15:15 01/22/24 01:16 100 MLS/HR Lorazepam 0.5 mg Q6HP PRN PO 01/21/24 15:15 Al Hydrox/Mg Hydrox/Simethicone 30 ml Q6HP PRN PO 01/21/24 15:15 Docusate Sodium 100 mg BIDPRN PRN PO 01/21/24 15:15 Acetaminophen 650 mg Q6HP PRN PO 01/21/24 15:15 Temazepam 15 mg QHSP PRN PO 01/21/24 15:15 Acetaminophen/ Hydrocodone Bitart 1 tab Q4HP PRN PO 01/21/24 15:15 01/22/24 13:22 1 TAB Ondansetron HCl 4 mg Q4HP PRN IV 01/21/24 15:15 01/22/24 08:38 4 MG Morphine Sulfate 2 mg Q4HPRN PRN IV 01/21/24 15:15 01/22/24 08:40 2 MG Ceftriaxone Sodium 50 ml @ 100 mls/hr DAILY IV 01/22/24 10:00 01/22/24 11:12 100 MLS/HR Examination General Appearance: Alert, Oriented X3, Cooperative HEENT: Atraumatic, EOMI Respiratory: Clear to auscultation, Normal air movement Cardiovascular: Regular rate, Normal S1, Normal S2 Abdominal: mild tenderness in right CV angle Extremities: No clubbing, No cyanosis, No edema Skin: No rashes, No breakdown, No significant lesion Neuro: Normal gait, Normal speech Psych/Mental Status: Mood NL laboratory and microbiology Laboratory Tests 01/22/24 03:15 Test 01/22/24 03:15 Range/Units Serum Glucose 94 74-106 mg/dL Problem List/Assessment/Plan Problem List/Assessment/Plan #Hydronephrosis with renal and ureteral calculous obstruction #Morbid obesity with BMI of 45.0-49.9 #Urinary retention resolved IV fluids: 100 cc/h tamsulosin ceftriaxone Pt still has the santoyo: feeling relieve with it possible DC tomorrow Case discussed with Dr Simmons Time spent on care 23 min Plan discussed with: Patient, Other (rn) My Orders My Orders Orders - XANDER ANDERSON Procedure Category Date Status Time Kidney US 01/22/24 Resulted 09:28 Date of Service: Jan 22, 2024 Billing Provider: MAXWELL SIMMONS MD Common Visit Codes: [id number] INP/OBS CARE(HIGH) XANDER ANDERSON RESIDENT Jan 22, 2024 18:23 MAXWELL SIMMONS MD Jan 23, 2024 21:50
[2024-01-22] MEDS: ACETAMINOPHEN 325 MG TAB PO PRN (21:22)
[2024-01-23 01:00] VITALS: BP 126/71; PULSE 73; RESP 17; TEMP 98.8; O2SAT 93
[2024-01-23 05:00] VITALS: BP 138/80; PULSE 78; RESP 18; TEMP 98.6; O2SAT 94
[2024-01-23 06:05] LABS: Basophils # (auto) 0.1 10 ^3/uL (0-0.2); Basophils % (auto) 0.6 % (0.0-2.0); Eosinophils # (auto) 0 10 ^3/uL (0-0.8); Eosinophils % (auto) 0.5 % (0.0-7.0); Hematocrit 38.2 % (41.0-53.0); Hemoglobin 13.4 g/dL (13.5-17.5); Lymphocytes # (auto) 1.4 10 ^3/uL (0.4-5.4); Lymphocytes % (auto) 14.7 % (10.0-50.0); Mean Corpuscular Hemoglobin 30.3 pg (28.0-32.0); Mean Corpuscular Hgb Conc. 35.1 g/dL (32.0-36.0); Mean Corpuscular Volume 86.2 fL (80.0-100.0); Monocytes # (auto) 0.8 10 ^3/uL (0-1.3); Monocytes % (auto) 8.5 % (0.0-12.0); Neutrophils % (auto) 75.7 % (37.0-80.0); Platelet Count (auto) 208 10^3/uL (140-450); Red Blood Cells 4.43 10^6/uL (4.5-5.90); Red Cell Distribution Width 13.4 % (11.8-14.3); White Blood Cell 9.3 10^3/uL (4.4-10.8)
[2024-01-23 06:28] LABS: Alkaline Phosphatase 93 U/L (46-116); Anion Gap 11 (5-15); BUN/Creatinine Ratio 7.6 (10.0-20.0); Blood Urea Nitrogen 13 mg/dL (9-23); Calcium 9.1 mg/dL (8.7-10.4); Carbon Dioxide 23 mmol/L (20-31); Chloride 106 mmol/L (98-107); Glucose 102 mg/dL (74-106); Potassium 3.8 mmol/L (3.5-5.1); Sodium 140 mmol/L (136-145)
[2024-01-23 06:29] LABS: Albumin 4.1 g/dL (3.2-4.8); Aspartate Aminotransferase 17 U/L (13-40); Bilirubin, Total 0.8 mg/dL (0.2-1.0); Total Protein 6.5 g/dL (5.7-8.2)
[2024-01-23 06:52] LABS: Alanine Aminotransferase 42 U/L (7-40)
[2024-01-23 09:00] VITALS: BP 140/86; PULSE 76; RESP 17; TEMP 98.4; O2SAT 97
[2024-01-23 13:00] VITALS: BP 121/71; PULSE 80; RESP 19; TEMP 98; O2SAT 96
[2024-01-23] MEDS ORDERED: GICOCKTAIL PO (13:36)
[2024-01-23] MEDS ORDERED: TAMS-35 PO (13:36)
[2024-01-23] MEDS ORDERED: CIPR500T4 PO (13:36)
[2024-01-23] MEDS ORDERED: ACET-1882 PO (13:36)
--- NOTE | 2024-01-23 16:00 | DVHDSRES ---
Discharge Summary Date of Admission Resident Creating Document: XANDER ANDERSON RESIDENT Jan 21, 2024 at 15:05 Date of Discharge: Jan 23, 2024 Admitting Diagnosis #Hydronephrosis with renal and ureteral calculous obstruction Labs/Diagnostic Data: Laboratory Results Test 01/23/24 04:57 01/22/24 03:15 01/21/24 18:16 01/21/24 13:52 White Blood Count 9.3 10^3/uL (4.4-10.8) Red Blood Count 4.43 10^6/uL (4.5-5.90) Hemoglobin 13.4 g/dL (13.5-17.5) Hematocrit 38.2 % (41.0-53.0) Mean Corpuscular Volume 86.2 fL (80.0-100.0) Mean Corpuscular Hemoglobin 30.3 pg (28.0-32.0) Mean Corpuscular Hemoglobin Concent 35.1 g/dL (32.0-36.0) Red Cell Distribution Width 13.4 % (11.8-14.3) Platelet Count 208 10^3/uL (140-450) Mean Platelet Volume 8.0 fL (6.9-10.8) Neutrophils (%) (Auto) 75.7 % (37.0-80.0) Lymphocytes (%) (Auto) 14.7 % (10.0-50.0) Monocytes (%) (Auto) 8.5 % (0.0-12.0) Eosinophils (%) (Auto) 0.5 % (0.0-7.0) Basophils (%) (Auto) 0.6 % (0.0-2.0) Neutrophils # (Auto) 7.0 10 ^3/uL (1.6-8.6) Lymphocytes # (Auto) 1.4 10 ^3/uL (0.4-5.4) Monocytes # (Auto) 0.8 10 ^3/uL (0-1.3) Eosinophils # (Auto) 0 10 ^3/uL (0-0.8) Basophils # (Auto) 0.1 10 ^3/uL (0-0.2) Nucleated Red Blood Cells 0.0 % Sodium Level 140 mmol/L (136-145) Potassium Level 3.8 mmol/L (3.5-5.1) Chloride Level 106 mmol/L (98-107) Carbon Dioxide Level 23 mmol/L (20-31) Anion Gap 11 (5-15) Blood Urea Nitrogen 13 mg/dL (9-23) Creatinine 1.71 mg/dL (0.700-1.30) Glomerular Filtration Rate Calc 55 mL/min (>90) BUN/Creatinine Ratio 7.6 (10.0-20.0) Serum Glucose 102 mg/dL (74-106) Calcium Level 9.1 mg/dL (8.7-10.4) Total Bilirubin 0.8 mg/dL (0.2-1.0) Aspartate Amino Transferase (AST) 17 U/L (13-40) Alanine Aminotransferase (ALT) 42 U/L (7-40) Alkaline Phosphatase 93 U/L (46-116) Total Protein 6.5 g/dL (5.7-8.2) Albumin 4.1 g/dL (3.2-4.8) Uric Acid 8.8 mg/dL (3.7-9.2) Urine Color Brown (Yellow) Urine Clarity Ex.turbid (Clear) Urine pH 5.0 (5.0-9.0) Urine Specific [place] 1.024 (1.001-1.035) Urine Protein Negative (Negative) Urine Ketones Negative (Negative) Urine Blood 1+ /uL (Negative) Urine Nitrite Negative (Negative) Urine Bilirubin Negative (Negative) Urine Urobilinogen Normal mg/dL (Negative) Urine Leukocyte Esterase Negative /uL (Negative) Urine RBC 3 /hpf (0 - 3) Urine WBC 8 /hpf (0 - 3) Urine Squamous Epithelial Cells Few /hpf (<5) Urine Amorphous Crystals Mod /hpf (None Seen) Urine Bacteria Few /hpf (None Seen) Urine Glucose Normal mg/dL (Normal) Lactic Acid Level 1.6 mmol/L (0.4-2.0) Test 01/21/24 11:44 Lipase 29 U/L (12-53) Other Laboratory Tests 01/23/24 04:57 Brief Hx & Hospital Course: 28-year-old male PMHX obesity presents to emergency department for evaluation of right lower quadrant pain with associated nausea Onset of symptoms 2 days ago Pain is constant nonradiating. No alleviating or precipitating factors. Never had this kind of pain before. Pt also states urinary retention for [address] scan showed Punctate mildly obstructing distal right ureteral calculus measuring less than 2 mm associated with mild right hydronephrosis, At the physical exam, rectal exam showed enlarged elastic prostate. Urology was consulted and they cosider fu outpatient, obstruction was relieved with santoyo and was dc at discharge. DC with oral AB and tamsulosin. Case discussed with Dr Simmons Time spent on care 23 min Consults/Reason for consult urology due to kidney stones Operations or Procedures Abdomen/Pelvis: CTDIvol 25 mGy, DLP 1655 mGy*cm. Findings: Evaluation of solid organs is limited due to lack of intravenous contrast use. Lung Bases: No acute or significant lung base finding. Normal heart size. No pleural or pericardial effusion. Liver: The liver is normal in size. No focal lesions. Gallbladder and biliary Tree: Unremarkable Spleen: Unremarkable Pancreas: The pancreas is grossly normal in appearance. Adrenal Glands: Unremarkable Kidneys: There is mild right hydronephrosis. There is a punctate distal right ureteral calculus measuring less than 2 mm. No left hydronephrosis. Bladder: Grossly unremarkable for degree of distention. Bowel: The stomach is grossly normal in appearance. Small bowel and colon are normal in caliber and distribution. Normal appendix is visualized in the right lower quadrant without findings of appendicitis. Ascites: Absent Lymphadenopathy: No mesenteric, retroperitoneal or periportal lymphadenopathy. Abdominal wall and Mesentery: Unremarkable. Vasculature: The visualized abdominal aorta is normal in size and caliber. Evaluation of abdominal and pelvic vessels is limited due to lack of intravenous contrast. Pelvic Organs: Unremarkable Musculoskeletal: No aggressive focal bony lesions, acute fractures or dislocation. IMPRESSION: 1. Punctate mildly obstructing distal right ureteral calculus measuring less than 2 mm associated with mild right hydronephrosis. Urology evaluation is recommended. Radiation optimization: All CT scans at this facility use at least one of these dose optimization techniques: Automated exposure control mA and/or kV adjustment per patient size (includes targeted exams where dose is matched to clinical indication) or iterative reconstruction. Condition at Discharge: Stable Final Diagnosis/Problems List #Hydronephrosis with renal and ureteral calculous obstruction #Morbid obesity with BMI of 45.0-49.9 #Urinary retention resolved Discharge Disposition: Home Discharge Instruct/Medications Diet: Consistent carbohydrate Activity: No Restrictions, As Tolerated Follow Up/Referral: f/u with pcp and urology dc clinic 1 week Medications: see prescription Discharge Statement: "Patient was advised to return to the ER or call 911 if any headaches, dizziness, shortness of breath, chest pain, abdominal pain, bleeding, fevers, or worsening of medical condition. Patient was counseled about treatment plan, medications, possible side effects, patientverbalized understanding. All questions were answered to the best of my ability. This discharge took greater then 30 minutes in planning, reviewing documentation, counseling the patient, and discussing with other team members." ASSESSMENT ASSESSMENT Assessment kidney stones urinary obstruction Date of Service: Jan 23, 2024 Billing Provider: MAXWELL SIMMONS MD Common Visit Codes: [id number] DISCH DAY >30min XANDER ANDERSON RESIDENT Jan 23, 2024 15:59 MAXWELL SIMMONS MD Jan 24, 2024 23:03
[2024-01-23 17:00] VITALS: BP 127/70; PULSE 83; RESP 18; TEMP 98.3; O2SAT 96
== END 2024-01-23 18:20 | disposition home or self-care (01) | DRG 465 ==
LOC: ER 11:28 → OVERFLOW 15:05 → CENTRAL 01-22 17:46
PROVIDERS: ADMIT Student in an Organized Health Care Education/Training Program; ATTEND Student in an Organized Health Care Education/Training Program
DX: N13.2 Hydronephrosis with renal and ureteral calculous obstruction (principal); E87.20 Acidosis, unspecified; E66.01 Morbid (severe) obesity due to excess calories; F17.210 Nicotine dependence, cigarettes, uncomplicated; I10 Essential (primary) hypertension; Z68.42 Body mass index [BMI] 45.0-49.9, adult; Z88.0 Allergy status to penicillin; Z79.899 Other long term (current) drug therapy; Z88.8 Allergy status to other drugs, medicaments and biological substances
CPT/HCPCS: 36415; 74176; 76775; 80048; 80053; 81001; 83605; 83690; 84550; 85025; 96361; 96374; 96375; G0378; J2405